=== PATIENT | female | born 1955 | race Caucasian/White ===

== ENCOUNTER 2016-12-11 21:12 | Emergency (ER) | payer SELFPAY ==
[2017-02-25] MEDS ORDERED: BIOCIDIN PO (20:12)
[2017-02-25] MEDS ORDERED: [UNRECOGNIZED DRUG - OTHER] ×2 (20:12→22:36)
[2017-02-25] MEDS ORDERED: [UNRECOGNIZED DRUG - REMARK] PO (21:53)
[2017-02-25] MEDS ORDERED: BIOCIDIN (22:34)
[2017-02-25] MEDS ORDERED: BERBERINE (22:35)
== END 2016-12-11 23:08 ==
LOC: EDMED 21:12
DX: S30.814A Abrasion of vagina and vulva, initial encounter (principal); E07.9 Disorder of thyroid, unspecified; Z88.0 Allergy status to penicillin; Z79.890 Hormone replacement therapy; X58.XXXA Exposure to other specified factors, initial encounter

== ENCOUNTER 2016-12-13 08:52 | Emergency (ER) | payer SELFPAY ==
[2016-12-13] MEDS ORDERED: NO HOME MEDICATION XX (09:07)
[2016-12-13 10:01] LABS: BASO % 0.8 % (0-2); EOS % 3.9 % (0-7); EOSINOPHIL ABSOLUTE COUNT 0.2 tho/cmm (0.0-0.7); HCT-HEMATOCRIT 44.2 % (34.0-49.0); HGB-HEMOGLOBIN 15.1 gm/dl (12.0-15.5); IMMATURE GRANULOCYTES ABSOLUTE 0.01 tho/cmm (0-0.03); IMMATURE GRANULOCYTES PERCENT 0.2 % (0-0.3); LYMPH % 40.7 % (20-45); LYMPH ABSOLUTE COUNT 2.1 tho/cmm (0.8-4.5); MCHC MEAN CORPUSCULAR HGB CONC 34.2 % (32.0-36.0); MCV (MEAN CELL VOLUME) 87.9 fl (82.0-96.0); MEAN PLATELET VOLUME 10.5 cmc (9.4-12.4); MONO % 9.4 % (0-12); MONOCYTE ABSOLUTE COUNT 0.5 tho/cmm (0.0-1.2); NEUTROPHIL ABSOLUTE COUNT 2.3 tho/cmm (1.6-8.0); NEUTROPHIL-AUTOMATED 2.3 tho/cmm (1.6-8.0); PLATELET COUNT 256 tho/cmm (150-450); RED BLOOD COUNT 5.03 mil/cmm (4.00-5.20); WHITE BLOOD COUNT 5.2 tho/cmm (4.0-10.0)
[2017-02-25] MEDS ORDERED: [UNRECOGNIZED DRUG - OTHER] ×2 (20:12→22:36)
[2017-02-25] MEDS ORDERED: BIOCIDIN PO (20:12)
[2017-02-25] MEDS ORDERED: [UNRECOGNIZED DRUG - REMARK] PO (21:53)
[2017-02-25] MEDS ORDERED: BIOCIDIN (22:34)
[2017-02-25] MEDS ORDERED: BERBERINE (22:35)
== END 2016-12-13 11:12 ==
LOC: EDMED 08:52
PROVIDERS: Emergency Medicine
DX: N95.0 Postmenopausal bleeding (principal); R93.8 Abnormal findings on diagnostic imaging of other specified body structures; Z90.49 Acquired absence of other specified parts of digestive tract; Z88.0 Allergy status to penicillin; Z88.8 Allergy status to other drugs, medicaments and biological substances